=== PATIENT | male | born 1945 | race Caucasian/White ===

== ENCOUNTER 2018-10-09 11:26 | Inpatient (IN) | payer MEDICAID, MEDICARE ==
[2018-10-09 11:27] VITALS: BMI 25.0
[2018-10-09] MEDS: Albuterol-Ipratrop 3 mg / 0.5 (3 ml) UD IH SCH ×2 (12:31→13:25)
[2018-10-09] MEDS: Sodium Chloride 0.9% 1,000 ML IV SCH ×3 (12:31→22:30)
--- NOTE | 2018-10-09 12:32 | C.PDOC ---
History Of Present Illness Patient is a 73 year old male who presents to the ED for evaluation of ongoing SOB and cough for the past 4 days. Patient denies any CP, fever, or chills. Patient does not speak Nigerien. Time Seen by Provider: 10/09/18 12:01 Chief Complaint (Nursing): Shortness Of Breath History Per: Patient History/Exam Limitations: no limitations Onset/Duration Of Symptoms: Days (4) Current Symptoms Are (Timing): Still Present Initiating Event: Upper Respiratory Illness Associated Symptoms: denies: Fever, Chills, Chest Pain Recent travel outside of the [place]: No Additional History Per: Patient Past Medical History Reviewed: Historical Data, Nursing Documentation, Vital Signs Vital Signs: Last Vital Signs Temp 97.5 F L 10/09/18 11:38 Pulse 62 10/09/18 11:38 Resp 18 10/09/18 11:38 BP 168/105 H 10/09/18 11:38 Pulse Ox 95 10/09/18 11:38 Primary Care Provider: Sandor Magallanes - Medical History PMH: No Chronic Diseases Surgical History: Hernia Repair (x2 in 2007) Family History: States: Unknown Family Hx - Social History Hx Alcohol Use: No Hx Substance Use: No Review Of Systems Constitutional: Negative for: Fever, Chills Cardiovascular: Negative for: Chest Pain Respiratory: Positive for: Cough, Shortness of Breath, Sputum, Wheezing Physical Exam - Physical Exam Appears: Non-toxic, No Acute Distress Skin: Warm, Dry Head: Atraumatic, Normacephalic Eye(s): bilateral: Normal Inspection Nose: Normal Oral Mucosa: Moist Neck: Normal ROM, Supple Chest: Symmetrical, No Deformity Cardiovascular: Rhythm Regular, No Murmur Respiratory: Decreased Breath Sounds, Rhonchi, Wheezing (expiratory ) Gastrointestinal/Abdominal: Soft, No Tenderness Extremity: Normal ROM Neurological/Psych: Oriented x3, Normal Speech, Normal Cognition Gait: Steady ED Course And Treatment - Laboratory Results Result Diagrams: 10/09/18 12:44 10/09/18 12:44 Lab Interpretation: Normal ECG: Interpreted By Me ECG Rhythm: Sinus Rhythm ECG Interpretation: No Acute Changes Rate From EC O2 Sat by Pulse Oximetry: 95 (on RA) Pulse Ox Interpretation: Normal - Radiology CXR: Interpreted by Me CXR Interpretation: Yes: No Acute Disease - Other Rad CXR X-Ray: Viewed By Me, Read By Radiologist Interpretation: Date of service: 10/09/2018. HISTORY: Shortness of breath. COMPARISON: No prior. TECHNIQUE: Chest PA and lateral. FINDINGS: LINES AND TUBES: None. LUNG AND PLEURA: There is pulmonary hyperinflation. There is multifocal discoid atelectasis in the lower lobes. No pleural effusion or pneumothorax. HEART AND MEDIASTINUM: Mild cardiomegaly. No aortic atherosclerotic calcifications present. The hilar and mediastinal contours are within normal limits. SKELETAL STRUCTURES: The bony structures are within norm al limits for the patient's age. VISUALIZED UPPER ABDOMEN: Normal. OTHER FINDINGS: None. IMPRESSION: No active pulmonary disease. COPD. Progress Note: Treated with duoneb x 3 and solumedrol. On re-evaluation decrease breath sounds and few wheeze Reassessment Condition: Improved - Physician Consult Information Physician Contacted: Karon Barron Outcome Of Conversation: admit Medical Decision Making Medical Decision Making: Plan: Labs CXR Nebulizer Tx UA IV Fluids Solu-Medrol 60mg IVP Duoneb 3mg/0.5mg Disposition - Disposition Disposition Time: 17:45 Condition: IMPROVED - POA Present On Arrival: None - Clinical Impression Clinical Impression: Chr obstructive pulmonary disease w/ acute lower respiratory infxn - PA / BUSINESS CENTER ATTENDANT / Resident Statement MD/DO has reviewed & agrees with the documentation as recorded. - Scribe Statement The provider has reviewed the documentation as recorded by the Meloibtalib Friedman All medical record entries made by the Scribe were at my direction and personal ly dictated by me. I have reviewed the chart and agree that the record accurately reflects my personal performance of the history, physical exam, medical decision making, and the department course for this patient. I have also personally directed, reviewed, and agree with the discharge instructions and disposition. Decision To Admit - Pt Status Changed To: Hospital Disposition Of: Inpatient - Admit Certification Admit to Inpatient:: After my assessment, the patient will require hospitalization for at least two midnights. This is because of the severity of symptoms shown, intensity of services needed, and/or the medical risk in this patient being treated as an outpatient. - InPatient: Physician Admission Certification: I certify that this patient requires 2 or more midnights of care for the following reason:: COPD exacerbation - . Bed Request Type: Regular Admitting Physician: Karon Barron Patient Diagnosis: Dyspnea, Chr obstructive pulmonary disease w/ acute lower respiratory infxn
[2018-10-09] MEDS ORDERED: MethylPREDNISolone 40 mg Vial ONE (12:44)
[2018-10-09] MEDS ORDERED: Albuterol-Ipratrop 3 mg / 0.5 (3 ml) UD ONE ×2 (12:44→13:20)
[2018-10-09] MEDS ORDERED: Sodium Chloride 0.9% 1,000 ML ONE (12:44)
[2018-10-09 12:57] LABS: BASO % 0.4 % (0.0-2.0); EOS # 1.6 K/uL (0.0-0.7); EOS % 15.2 % (0.0-4.0); HEMOGLOBIN 15.9 g/dL (12.0-18.0); LYMPH # 2.2 K/uL (1.0-4.3); LYMPH % 20.4 % (20.0-40.0); MEAN CELL VOLUME 97.1 fL (80.0-94.0); MEAN PLATELET VOLUME 9.8 fL (7.2-11.7); MONO # 0.8 K/uL (0.0-0.8); MONO % 6.9 % (0.0-10.0); NEUT # 6.2 K/uL (1.8-7.0); NEUT % 57.1 % (50.0-75.0); RBC 4.82 Mil/uL (4.40-5.90); RED CELL DISTRIBUTION WIDTH 14.4 % (11.5-14.5); WHITE BLOOD COUNT 10.8 K/uL (4.8-10.8)
[2018-10-09 13:11] LABS: ALB/GLOB RATIO 1.2 (1.0-2.1); ALBUMIN 4.1 g/dL (3.5-5.0); ALT/SGPT 32 U/L (21-72); AST/SGOT 37 U/L (17-59); BLOOD UREA NITROGEN 15 mg/dL (9-20); GFR NON-AFRICAN AMERICAN > 60
--- NOTE | 2018-10-09 13:16 | RAD ---
Date of service: 10/09/2018 HISTORY: Shortness of breath COMPARISON: No prior. TECHNIQUE: Chest PA and lateral FINDINGS: LINES AND TUBES: None. LUNG AND PLEURA: There is pulmonary hyperinflation. There is multifocal discoid atelectasis in the lower lobes. No pleural effusion or pneumothorax. HEART AND MEDIASTINUM: Mild cardiomegaly. No aortic atherosclerotic calcifications present. The hilar and mediastinal contours are within normal limits. SKELETAL STRUCTURES: The bony structures are within normal limits for the patient's age. VISUALIZED UPPER ABDOMEN: Normal. OTHER FINDINGS: None. IMPRESSION: No active pulmonary disease. COPD.
[2018-10-09 18:18] VITALS: RESP 20
[2018-10-09 18:20] LABS: URINE BACTERIA RARE (<OCC); URINE BILIRUBIN NEGATIVE (NEGATIVE); URINE BLOOD NEGATIVE (NEGATIVE); URINE CLARITY Clear (Clear); URINE COLOR Yellow (YELLOW); URINE GLUCOSE (UA) NORMAL (Normal); URINE LEUKOCYTE ESTERASE NEG Leu/uL (Negative); URINE PROTEIN NEGATIVE (NEGATIVE); URINE UROBILINOGEN NORMAL mg/dL (0.2-1.0)
[2018-10-09] MEDS ORDERED: Albuterol-Ipratrop 3 mg / 0.5 (3 ml) UD INH STA (18:31)
[2018-10-09] MEDS: Arformoterol 15 mcg/2 ml Inh Sol INH SCH (19:42)
[2018-10-09] MEDS: Budesonide 0.5 mg/2 ml Inhal Susp UD INH SCH (19:43)
--- NOTE | 2018-10-09 19:54 | CP.PCM.HP ---
Past Patient History - Infectious Disease Hx of Infectious Diseases: None - Past Social History Smoking Status: Heavy Smoker > 10 Cigarettes Daily - PSYCHIATRIC Hx Substance Use: No - SURGICAL HISTORY Hx Herniorrhaphy: Yes - ANESTHESIA Hx Anesthesia: Yes Hx Anesthesia Reactions: No Hx Malignant Hyperthermia: No Meds Allergies/Adverse Reactions: Allergies Allergy/AdvReac Type Severity Reaction Status Date / Time No Known Allergies Allergy Verified 05/27/18 09:43 Physical Exam - Constitutional Appears: Well - Head Exam Head Exam: ATRAUMATIC, NORMAL INSPECTION, NORMOCEPHALIC - Eye Exam Eye Exam: EOMI, Normal appearance, PERRL Pupil Exam: NORMAL ACCOMODATION, PERRL - ENT Exam ENT Exam: Mucous Membranes Moist, Normal Exam - Neck Exam Neck exam: Positive for: Normal Inspection - Respiratory Exam Respiratory Exam: Decreased Breath Sounds - Cardiovascular Exam Cardiovascular Exam: REGULAR RHYTHM, +S1, +S2 - GI/Abdominal Exam GI & Abdominal Exam: Diminished Bowel Sounds, Soft - Rectal Exam Rectal Exam: Deferred - Neurological Exam Neurological exam: Oriented x3 Results - Vital Signs Recent Vital Signs: Last Vital Signs Temp 97.9 F 10/09/18 19:32 Pulse 78 10/09/18 19:32 Resp 20 10/09/18 19:32 BP 160/90 H 10/09/18 19:32 Pulse Ox 96 10/09/18 19:32 - Labs Result Diagrams: 10/09/18 12:44 10/09/18 12:44 Labs: Laboratory Results - last 24 hr 10/09/18 10/09/18 10/09/18 12:44 12:44 18:12 WBC 10.8 RBC 4.82 Hgb 15.9 Hct 46.8 MCV 97.1 H MCH 33.0 H MCHC 34.0 RDW 14.4 Plt Count 215 MPV 9.8 Neut % (Auto) 57.1 Lymph % (Auto) 20.4 [place] % (Auto) 6.9 Eos % (Auto) 15.2 H Baso % (Auto) 0.4 Neut # (Auto) 6.2 Lymph # (Auto) 2.2 [place] # (Auto) 0.8 Eos # (Auto) 1.6 H Baso # (Auto) 0.0 Sodium 139 Potassium 4.2 Chloride 103 Carbon Dioxide 29 Anion Gap 12 BUN 15 Creatinine 0.8 Est GFR ( Amer) > 60 Est GFR (Non-Af Amer) > 60 Random Glucose 94 Calcium 9.0 Total Bilirubin 0.9 AST 37 ALT 32 Alkaline Phosphatase 65 Total Protein 7.3 Albumin 4.1 Globulin 3.3 Albumin/Globulin Ratio 1.2 Urine Color Yellow Urine Clarity Clear Urine pH 6.0 Ur Specific [place] 1.010 Urine Protein Negative Urine Glucose (UA) Normal Urine Ketones Negative Urine Blood Negative Urine Nitrate Negative Urine Bilirubin Negative Urine Urobilinogen Normal Ur Leukocyte Esterase Neg Urine WBC (Auto) 1 Urine Bacteria Rare
[2018-10-09] MEDS: MethylPREDNISolone 40 mg Vial IVP SCH (21:14)
[2018-10-09] MEDS: metroNIDAZOLE IV 500 mg/100 ml 500 MG/100 ML BAG IVPB SCH (21:14)
[2018-10-10] MEDS: metroNIDAZOLE IV 500 mg/100 ml 500 MG/100 ML BAG IVPB SCH (05:37)
[2018-10-10] MEDS: MethylPREDNISolone 40 mg Vial IVP SCH ×2 (05:40→13:04)
[2018-10-10] MEDS: Sodium Chloride 0.9% 1,000 ML IV SCH (07:07)
--- NOTE | 2018-10-10 07:13 | CP.PCM.PN ---
Subjective - Date & Time of Evaluation Date of Evaluation: 10/10/18 Time of Evaluation: 08:00 - Subjective Subjective: Medicine Progress Note for Dr. Saeed Barron: Patient was evaluated and examined at bedside. Patient states he was feeling short of breath yesterday and that is what prompted him to come to the ER. Patient denies chest pain, shortness of breath, nausea, vomiting, fever, chills, diarrhea or constipation. Past Medical History: COPD Past Surgical History: bilateral hernia repair Allergies: NKDA Social History: smokes 6 cig per day; denies illicit drug use and alcohol use. 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 Objective - Vital Signs/Intake and Output Vital Signs (last 24 hours): Temp Pulse Resp BP Pulse Ox 97.9 F 78 20 119/65 96 10/09/18 23:37 10/09/18 23:37 10/09/18 23:37 10/09/18 23:37 10/09/18 23:37 Intake and Output: 10/10/18 10/10/18 06:59 18:59 Intake Total 1520 Output Total 750 Balance 770 - Medications Medications: Current Medications Albuterol/Ipratropium (Duoneb 3 Mg/0.5 Mg (3 Ml) Ud) 3 ml INH RQ6 [facility] Arformoterol Tartrate (Brovana) 15 mcg INH RQ12@1000,2200 [facility] Last Admin: 10/09/18 19:42 Dose: 15 mcg Budesonide (Pulmicort Respules) 0.5 mg INH RQ12 [facility] Last Admin: 10/09/18 19:43 Dose: 0.5 mg Ceftriaxone Sodium 1 gm/ (Sodium Chloride) 100 mls @ 100 mls/hr IVPB DAILY [facility]; Protocol Stop: 10/14/18 10:59 Methylprednisolone (Solu-Medrol) 40 mg IVP Q8 [facility] Last Admin: 10/10/18 05:40 Dose: 40 mg Pneumococcal Polyvalent Vaccine (Pneumovax 23 Vaccine) 0.5 ml IM .ONCE ONE Stop: 10/11/18 10:01 - Labs Labs: 10/09/18 12:44 10/09/18 12:44 - Constitutional Appears: No Acute Distress - Head Exam Head Exam: ATRAUMATIC, NORMAL INSPECTION - Eye Exam Eye Exam: EOMI, Normal appearance - ENT Exam ENT Exam: Mucous Membranes Moist - Respiratory Exam Respiratory Exam: Wheezes, NORMAL BREATHING PATTERN - Cardiovascular Exam Cardiovascular Exam: REGULAR RHYTHM, +S1, +S2 - GI/Abdominal Exam GI & Abdominal Exam: Soft, Normal Bowel Sounds. absent: Tenderness - Extremities Exam Extremities Exam: Normal Inspection - Neurological Exam Neurological Exam: Alert, Awake, Oriented x3 - Psychiatric Exam Psychiatric exam: Normal Affect Assessment and Plan - Assessment and Plan (Free Text) Assessment: COPD Exacerbation - Pulm Consult: Dr. Couch --> help appreciated - Chest Xray: No active pulmonary disease. COPD. - Medications * Duonebs q6 * Brovana 15mcg INH RQ12 * Pulmicort 0.5mg INH Rq12 * Ceftriaxone 1gm IV daily --> stop date 10/14/18 * Solumefrol 40mg IV q8h Tobacco Dependence - discussed and encouraged smoking cessation Prophylaxis - Lovenox 40mg SC daily - SCDs - Florastor 250mg po daily - Protonix 20mg po daily (due to steroid use) Management per Dr. Saeed Palm PGY-2
[2018-10-10] MEDS: Budesonide 0.5 mg/2 ml Inhal Susp UD INH SCH (08:45)
[2018-10-10] MEDS: Albuterol-Ipratrop 3 mg / 0.5 (3 ml) UD INH SCH ×2 (08:45→14:53)
[2018-10-10] MEDS: Arformoterol 15 mcg/2 ml Inh Sol INH SCH (09:13)
[2018-10-10] MEDS ORDERED: Enoxaparin 40 mg Syringe SC SCH (10:00)
[2018-10-10 11:16] LABS: BASO % 0.1 % (0.0-2.0); EOS % 0.1 % (0.0-4.0); LYMPH # 0.8 K/uL (1.0-4.3); LYMPH % 4.3 % (20.0-40.0); MEAN CORPUSCULAR HEMOGLOBIN 33.2 pg (27.0-31.0); MEAN CORPUSCULAR HGB CONC 34.2 g/dL (33.0-37.0); MEAN PLATELET VOLUME 9.7 fL (7.2-11.7); MONO # 0.6 K/uL (0.0-0.8); MONO % 3.2 % (0.0-10.0); NEUT # 17.1 K/uL (1.8-7.0); NEUT % 92.3 % (50.0-75.0); PLATELET COUNT 216 K/uL (130-400); RBC 4.21 Mil/uL (4.40-5.90); RED CELL DISTRIBUTION WIDTH 14.1 % (11.5-14.5)
[2018-10-10 11:21] LABS: WHITE BLOOD COUNT 18.6 K/uL (4.8-10.8)
[2018-10-10 11:29] LABS: ALB/GLOB RATIO 1.3 (1.0-2.1); ALBUMIN 3.6 g/dL (3.5-5.0); ALT/SGPT 22 U/L (21-72); AST/SGOT 24 U/L (17-59); BLOOD UREA NITROGEN 18 mg/dL (9-20); CALCIUM 8.6 mg/dl (8.6-10.4); GFR NON-AFRICAN AMERICAN > 60
[2018-10-10 12:02] LABS: LYMPHOCYTE 4 % (20-40); MONOCYTE 2 % (0-10); NEUTROPHIL 94 % (50-75); TOTAL CELLS COUNTED 100
[2018-10-10 12:03] LABS: PLATELET ESTIMATE NORMAL (NORMAL)
--- NOTE | 2018-10-10 14:12 | CP.PCM.PN ---
Subjective - Date & Time of Evaluation Date of Evaluation: 10/10/18 - Subjective Subjective: patient seen and examined today no nausea no dizziness no fever no vomiting no diarrhea no shortness of breath Objective - Vital Signs/Intake and Output Vital Signs (last 24 hours): Temp Pulse Resp BP Pulse Ox 97.9 F 67 20 129/78 96 10/10/18 07:29 10/10/18 07:29 10/10/18 07:29 10/10/18 07:29 10/10/18 07:29 Intake and Output: 10/10/18 10/10/18 06:59 18:59 Intake Total 1520 100 Output Total 750 Balance 770 100 - Medications Medications: Current Medications Albuterol/Ipratropium (Duoneb 3 Mg/0.5 Mg (3 Ml) Ud) 3 ml INH RQ6 [facility] Last Admin: 10/10/18 08:45 Dose: 3 ml Arformoterol Tartrate (Brovana) 15 mcg INH RQ12@1000,2200 [facility] Last Admin: 10/10/18 09:13 Dose: 15 mcg Budesonide (Pulmicort Respules) 0.5 mg INH RQ12 [facility] Last Admin: 10/10/18 08:45 Dose: 0.5 mg Enoxaparin Sodium (Lovenox) 40 mg SC DAILY [facility] Last Admin: 10/10/18 10:17 Dose: 40 mg Ceftriaxone Sodium 1 gm/ (Sodium Chloride) 100 mls @ 100 mls/hr IVPB DAILY [facility]; Protocol Stop: 10/14/18 10:59 Last Admin: 10/10/18 10:09 Dose: 100 mls/hr Methylprednisolone (Solu-Medrol) 40 mg IVP Q8 [facility] Last Admin: 10/10/18 13:04 Dose: 40 mg Pantoprazole Sodium (Protonix Ec Tab) 20 mg PO DAILY [facility] Pneumococcal Polyvalent Vaccine (Pneumovax 23 Vaccine) 0.5 ml IM .ONCE ONE Stop: 10/11/18 10:01 Saccharomyces Boulardii (Florastor) 250 mg PO DAILY [facility] - Labs Labs: 10/10/18 10:59 10/10/18 10:59 Assessment and Plan - Assessment and Plan (Free Text) Plan: COPD Exacerbation - Pulm Consult: Dr. Couch --> help appreciated - Chest Xray: No active pulmonary disease. COPD. - Medications * Duonebs q6 * Brovana 15mcg INH RQ12 * Pulmicort 0.5mg INH Rq12 * Ceftriaxone 1gm IV daily --> stop date 10/14/18 * Solumefrol 40mg IV q8h Tobacco Dependence - discussed and encouraged smoking cessation Prophylaxis - Lovenox 40mg SC daily - SCDs - Florastor 250mg po daily - Protonix 20mg po daily (due to steroid use)
[2018-10-10 16:12] VITALS: BP 150/81; PULSE 86; TEMP 98.1; O2SAT 95
--- NOTE | 2018-10-10 16:41 | CP.PCM.CON ---
History of Present Illness - History of Present Illness History of Present Illness: Reason for consultation: Shortness of breath 73-year-old male with long history of smoking and COPD was admitted with worsening shortness of breath and cough over the past 4 days. Denies fever chills, denies chest pain. Review of Systems - Review of Systems All systems: reviewed and no additional remarkable complaints except (Shortness of breath and cough) Past Patient History - Infectious Disease Hx of Infectious Diseases: None - Past Social History Smoking Status: Current Some Days Smoker - MUSCULOSKELETAL/RHEUMATOLOGICAL Hx Falls: No - PSYCHIATRIC Hx Substance Use: No - SURGICAL HISTORY Hx Surgeries: Yes Hx Herniorrhaphy: Yes Other/Comment: hernia repair x2 - ANESTHESIA Hx Anesthesia: Yes Hx Anesthesia Reactions: No Hx Malignant Hyperthermia: No Meds Allergies/Adverse Reactions: Allergies Allergy/AdvReac Type Severity Reaction Status Date / Time No Known Allergies Allergy Verified 05/27/18 09:43 - Medications Medications: Current Medications Albuterol/Ipratropium (Duoneb 3 Mg/0.5 Mg (3 Ml) Ud) 3 ml INH RQ6 [facility] Last Admin: 10/10/18 14:53 Dose: Not Given Arformoterol Tartrate (Brovana) 15 mcg INH RQ12@1000,2200 [facility] Last Admin: 10/10/18 09:13 Dose: 15 mcg Budesonide (Pulmicort Respules) 0.5 mg INH RQ12 [facility] Last Admin: 10/10/18 08:45 Dose: 0.5 mg Enoxaparin Sodium (Lovenox) 40 mg SC DAILY [facility] Last Admin: 10/10/18 10:17 Dose: 40 mg Ceftriaxone Sodium 1 gm/ (Sodium Chloride) 100 mls @ 100 mls/hr IVPB DAILY [facility]; Protocol Stop: 10/14/18 10:59 Last Admin: 10/10/18 10:09 Dose: 100 mls/hr Methylprednisolone (Solu-Medrol) 40 mg IVP Q8 [facility] Last Admin: 10/10/18 13:04 Dose: 40 mg Pantoprazole Sodium (Protonix Ec Tab) 20 mg PO DAILY [facility] Pneumococcal Polyvalent Vaccine (Pneumovax 23 Vaccine) 0.5 ml IM .ONCE ONE Stop: 10/11/18 10:01 Saccharomyces Boulardii (Florastor) 250 mg PO DAILY [facility] Physical Exam - Head Exam Head Exam: ATRAUMATIC, NORMOCEPHALIC - ENT Exam ENT Exam: Mucous Membranes Moist - Neck Exam Neck exam: Positive for: Normal Inspection - Respiratory Exam Respiratory Exam: Decreased Breath Sounds - Cardiovascular Exam Cardiovascular Exam: REGULAR RHYTHM - GI/Abdominal Exam GI & Abdominal Exam: Normal Bowel Sounds, Soft - Extremities Exam Extremities exam: Positive for: normal inspection - Neurological Exam Neurological exam: Alert, Oriented x3 Results - Vital Signs Recent Vital Signs: Last Vital Signs Temp 98.1 F 10/10/18 16:11 Pulse 86 10/10/18 16:11 Resp 20 10/10/18 16:11 BP 150/81 10/10/18 16:11 Pulse Ox 95 10/10/18 16:11 - Labs Result Diagrams: 10/10/18 10:59 10/10/18 10:59 Labs: Laboratory Results - last 24 hr 10/09/18 10/10/18 10/10/18 18:12 07:20 10:59 WBC 18.6 H D RBC 4.21 L Hgb 14.0 Hct 40.8 MCV 97.0 H MCH 33.2 H MCHC 34.2 RDW 14.1 Plt Count 216 MPV 9.7 Neut % (Auto) 92.3 H Lymph % (Auto) 4.3 L [place] % (Auto) 3.2 Eos % (Auto) 0.1 Baso % (Auto) 0.1 Neut # (Auto) 17.1 H Lymph # (Auto) 0.8 L [place] # (Auto) 0.6 Eos # (Auto) 0.0 Baso # (Auto) 0.0 Neutrophils % (Manual) 94 H Lymphocytes % (Manual) 4 L Monocytes % (Manual) 2 Platelet Estimate Normal RBC Morphology Normal Sodium Potassium Chloride Carbon Dioxide Anion Gap BUN Creatinine Est GFR ( Amer) Est GFR (Non-Af Amer) POC Glucose (mg/dL) 114 H Random Glucose Calcium Phosphorus Magnesium Total Bilirubin AST ALT Alkaline Phosphatase Total Protein Albumin Globulin Albumin/Globulin Ratio Urine Color Yellow Urine Clarity Clear Urine pH 6.0 Ur Specific [place] 1.010 Urine Protein Negative Urine Glucose (UA) Normal Urine Ketones Negative Urine Blood Negative Urine Nitrate Negative Urine Bilirubin Negative Urine Urobilinogen Normal Ur Leukocyte Esterase Neg Urine WBC (Auto) 1 Urine Bacteria Rare 10/10/18 10:59 WBC RBC Hgb Hct MCV MCH MCHC RDW Plt Count MPV Neut % (Auto) Lymph % (Auto) [place] % (Auto) Eos % (Auto) Baso % (Auto) Neut # (Auto) Lymph # (Auto) [place] # (Auto) Eos # (Auto) Baso # (Auto) Neutrophils % (Manual) Lymphocytes % (Manual) Monocytes % (Manual) Platelet Estimate RBC Morphology Sodium 138 Potassium 4.0 Chloride 106 Carbon Dioxide 23 Anion Gap 14 BUN 18 Creatinine 0.7 L Est GFR ( Amer) > 60 Est GFR (Non-Af Amer) > 60 POC Glucose (mg/dL) Random Glucose 178 H D Calcium 8.6 Phosphorus 3.5 Magnesium 1.6 Total Bilirubin 0.5 AST 24 ALT 22 Alkaline Phosphatase 53 Total Protein 6.5 Albumin 3.6 Globulin 2.9 Albumin/Globulin Ratio 1.3 Urine Color Urine Clarity Urine pH Ur Specific [place] Urine Protein Urine Glucose (UA) Urine Ketones Urine Blood Urine Nitrate Urine Bilirubin Urine Urobilinogen Ur Leukocyte Esterase Urine WBC (Auto) Urine Bacteria Assessment & Plan (1) Chr obstructive pulmonary disease w/ acute lower respiratory infxn Status: Acute Comment: Continue with IV steroids and nebulizer treatment. Patient advised to quit smoking. Brovana and budesonide. Pulmonary function test
--- NOTE | 2018-10-10 18:23 | CP.PCM.DIS ---
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 Comment: Physician Instructions: Reason For Exam: COPD Time Spent in preparation of Discharge (in minutes): 30 Hospital Course - Lab Results Lab Results: Most Recent Lab Values WBC 18.6 K/uL (4.8-10.8) H D 10/10/18 10:59 RBC 4.21 Mil/uL (4.40-5.90) L 10/10/18 10:59 Hgb 14.0 g/dL (12.0-18.0) 10/10/18 10:59 Hct 40.8 % (35.0-51.0) 10/10/18 10:59 MCV 97.0 fL (80.0-94.0) H 10/10/18 10:59 MCH 33.2 pg (27.0-31.0) H 10/10/18 10:59 MCHC 34.2 g/dL (33.0-37.0) 10/10/18 10:59 RDW 14.1 % (11.5-14.5) 10/10/18 10:59 Plt Count 216 K/uL (130-400) 10/10/18 10:59 MPV 9.7 fL (7.2-11.7) 10/10/18 10:59 Neut % (Auto) 92.3 % (50.0-75.0) H 10/10/18 10:59 Lymph % (Auto) 4.3 % (20.0-40.0) L 10/10/18 10:59 [place] % (Auto) 3.2 % (0.0-10.0) 10/10/18 10:59 Eos % (Auto) 0.1 % (0.0-4.0) 10/10/18 10:59 Baso % (Auto) 0.1 % (0.0-2.0) 10/10/18 10:59 Neut # (Auto) 17.1 K/uL (1.8-7.0) H 10/10/18 10:59 Lymph # (Auto) 0.8 K/uL (1.0-4.3) L 10/10/18 10:59 [place] # (Auto) 0.6 K/uL (0.0-0.8) 10/10/18 10:59 Eos # (Auto) 0.0 K/uL (0.0-0.7) 10/10/18 10:59 Baso # (Auto) 0.0 K/uL (0.0-0.2) 10/10/18 10:59 Neutrophils % (Manual) 94 % (50-75) H 10/10/18 10:59 Lymphocytes % (Manual) 4 % (20-40) L 10/10/18 10:59 Monocytes % (Manual) 2 % (0-10) 10/10/18 10:59 Platelet Estimate Normal (NORMAL) 10/10/18 10:59 RBC Morphology Normal 10/10/18 10:59 Sodium 138 mmol/L (132-148) 10/10/18 10:59 Potassium 4.0 mmol/L (3.6-5.2) 10/10/18 10:59 Chloride 106 mmol/L (98-107) 10/10/18 10:59 Carbon Dioxide 23 mmol/L (22-30) 10/10/18 10:59 Anion Gap 14 (10-20) 10/10/18 10:59 BUN 18 mg/dL (9-20) 10/10/18 10:59 Creatinine 0.7 mg/dL (0.8-1.5) L 10/10/18 10:59 Est GFR ( Amer) > 60 10/10/18 10:59 Est GFR (Non-Af Amer) > 60 10/10/18 10:59 POC Glucose (mg/dL) 114 mg/dL (65-110) H 10/10/18 07:20 Random Glucose 178 mg/dL (75-110) H D 10/10/18 10:59 Calcium 8.6 mg/dl (8.6-10.4) 10/10/18 10:59 Phosphorus 3.5 mg/dL (2.5-4.5) 10/10/18 10:59 Magnesium 1.6 mg/dL (1.6-2.3) 10/10/18 10:59 Total Bilirubin 0.5 mg/dL (0.2-1.3) 10/10/18 10:59 AST 24 U/L (17-59) 10/10/18 10:59 ALT 22 U/L (21-72) 10/10/18 10:59 Alkaline Phosphatase 53 U/L (38-126) 10/10/18 10:59 Total Protein 6.5 g/dL (6.3-8.3) 10/10/18 10:59 Albumin 3.6 g/dL (3.5-5.0) 10/10/18 10:59 Globulin 2.9 gm/dL (2.2-3.9) 10/10/18 10:59 Albumin/Globulin Ratio 1.3 (1.0-2.1) 10/10/18 10:59 Urine Color Yellow (YELLOW) 10/09/18 18:12 Urine Clarity Clear (Clear) 10/09/18 18:12 Urine pH 6.0 (5.0-8.0) 10/09/18 18:12 Ur Specific [place] 1.010 (1.003-1.030) 10/09/18 18:12 Urine Protein Negative mg/dL (NEGATIVE) 10/09/18 18:12 Urine Glucose (UA) Normal mg/dL (Normal) 10/09/18 18:12 Urine Ketones Negative mg/dL (NEGATIVE) 10/09/18 18:12 Urine Blood Negative (NEGATIVE) 10/09/18 18:12 Urine Nitrate Negative (NEGATIVE) 10/09/18 18:12 Urine Bilirubin Negative (NEGATIVE) 10/09/18 18:12 Urine Urobilinogen Normal mg/dL (0.2-1.0) 10/09/18 18:12 Ur Leukocyte Esterase Neg Shiva/uL (Negative) 10/09/18 18:12 Urine WBC (Auto) 1 /hpf (0-5) 10/09/18 18:12 Urine Bacteria Rare (<OCC) 10/09/18 18:12 - Hospital Course Hospital Course: pt signed out ama Patient was evaluated and examined at bedside. Patient states he was feeling short of breath yesterday and that is what prompted him to come to the ER. Patient denies chest pain, shortness of breath, nausea, vomiting, fever, chills, diarrhea or constipation. Past Medical History: COPD Past Surgical History: bilateral hernia repair Allergies: NKDA Social History: smokes 6 cig per day; denies illicit drug use and alcohol use. 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 Couch --> help appreciated - Chest Xray: No active pulmonary disease. COPD. - Medications * Duonebs q6 * Brovana 15mcg INH RQ12 * Pulmicort 0.5mg INH Rq12 * Ceftriaxone 1gm IV daily --> stop date 10/14/18 * Solumefrol 40mg IV q8h Tobacco Dependence - discussed and encouraged smoking cessation Prophylaxis - Lovenox 40mg SC daily - SCDs - Florastor 250mg po daily - Protonix 20mg po daily (due to steroid use) Discharge Exam - Head Exam Head Exam: ATRAUMATIC, NORMOCEPHALIC Discharge Plan - Follow Up Plan Condition: IMPROVED Disposition: AGAINST MEDICAL ADVICE
[2018-10-11] MEDS ORDERED: Pantoprazole 20 mg EC Tab PO SCH (10:00)
[2018-10-11] MEDS ORDERED: Saccharomyces Boulardi 250 mg Cap PO SCH (10:00)
[2018-10-11] MEDS ORDERED: Pneumococcal 23-Valent Vaccine IM ONE (10:00)
--- NOTE | 2018-10-11 14:06 | CARD ---
APPROVED REPORT Date of service: 10/09/2018 EKG Measurement Heart [id number] MD [id number] <Conclusion> Sinus rhythm with premature supraventricular complexes Right atrial enlargement Left axis deviation Abnormal ECG
== END 2018-10-10 18:00 | disposition left against medical advice (07) | DRG 192 ==
LOC: C.ER 11:26 → C.9E 14:41 → C.3T 18:19
PROVIDERS: ADMIT Internal Medicine Nephrology; ATTEND Internal Medicine Nephrology
DX: J44.1 Chronic obstructive pulmonary disease with (acute) exacerbation (principal); F17.210 Nicotine dependence, cigarettes, uncomplicated